=== PATIENT | male | born 1990 | race Caucasian/White ===

== ENCOUNTER 2017-01-06 11:14 | Emergency (ER) | payer OTHER ==
--- NOTE | ~2017-01-06 | CR63 ---
[facility]. [facility] A Service of [facility] & [facility] RADIOLOGY TEXT RESULTS PATIENT: LLOYD KAPOOR LOCATION: SED : [birth year] UNIT #: [id number] AGE: [address]: Cailin Bourne MD SEX: M ORDER DR: [id number] [place] [id number] E MR#: [id number] Acc #: [id number] NAME: LLOYD KAPOOR : 1990 SEX: M STUDY DATE/TIME: 01/06/2017 14:49 UNIT: SED ROOM: STUDY DESCRIPTION: CR Chest 2 View Attending Physician: Cailin Bourne M.D. Ordering Physician: Cailin Bourne M.D. Primary Care Physician: Primary Care Physician No MEDICAL IMAGING REPORT This report is preliminary unless electronic signature is present. EXAM Two-view chest, 01/06/2017 INDICATION 18-year-old male with cough, chest congestion and pain with deep inspiration. Sore throat. Symptoms since last Sunday. TECHNIQUE Two-view chest COMPARISON 01/03/2017 FINDINGS Cardiac silhouette unremarkable. Vascularity normal. Lungs clear. No pneumothorax. IMPRESSION Negative chest. No change. Dictated by... Arnold Rosario M.D. THIS IS AN ELECTRONICALLY VERIFIED REPORT Arnold Rosario M.D. at 01/07/2017 3:03 PM [employer] TD: 01/07/2017 13:14 JOB #: [id number] MEDICAL IMAGING REPORT Page 1 of 1
[~2017-01-06 11:14] MED LIST: FAMOTIDINE PO; MOBIC PO
[2017-01-06] MEDS ORDERED: CLEOCIN150 M1 PO (11:26)
[2017-01-06 13:18] LABS: BASOPHIL% 0.4 % (0-2.5); EOSINOPHIL% 0.1 % (0.0-7.0); HEMATOCRIT 42.2 % (38.0-50.0); HEMOGLOBIN 14.7 gm/dL (13.0-16.0); LYMPHOCYTE# 2.8 X10e3 (1.0-3.5); LYMPHOCYTE% 24.2 % (17.0-45.0); MEAN CELL VOLUME 85.7 FL (83-96); MEAN CORPUSCULAR HEMOGLOBIN 29.8 PG (28-34); MEAN CORPUSCULAR HGB CONC 34.8 g/dL (30-36); MEAN PLATELET VOLUME 7.5 FL (6.5-11.5); MONOCYTE# 1.4 X10e3 (0-1.0); MONOCYTE% 11.7 % (3.0-12.0); NEUTROPHIL# 7.5 X10e3 (1.5-7.1); NEUTROPHIL% 63.6 % (40-75); PLATELET COUNT 277 X10e3 (140-420); RED BLOOD COUNT 4.93 X10e (3.90-5.60); RED CELL DISTRIBUTION WIDTH 13.4 % (11.0-15.5); WHITE BLOOD COUNT 11.8 X10e3 (4.0-10.5)
[2017-01-06 13:21] LABS: DIFF IND NO
[2017-01-06 13:38] LABS: BILIRUBIN, DIRECT 0.1 mg/dL (0.0-0.2); BILIRUBIN,INDIRECT 0.5 mg/dL (0.0-0.9); BILIRUBIN,TOTAL 0.6 mg/dL (0.2-2.0); BUN/CREATININE RATIO 17.14; CALCIUM SERUM 9.2 mg/dL (8.4-10.2); CREATININE SERUM 0.7 mg/dL (0.6-1.4); GLOM FILT RATE Estimated 128.5 mL/min (>60); POTASSIUM 3.6 mmol/L (3.5-5.1); PROTEIN TOTAL SERUM 7.9 g/dL (6.0-8.3)
== END 2017-01-06 15:53 | disposition home or self-care (01) ==
LOC: SED 11:14
PROVIDERS: Student in an Organized Health Care Education/Training Program
DX: J03.90 Acute tonsillitis, unspecified (principal); R07.9 Chest pain, unspecified; F17.200 Nicotine dependence, unspecified, uncomplicated
CPT/HCPCS: 36415; 71020; 80048; 80076; 82150; 83690; 85025; 86308; 96361; 96374; 96375; 99285; J1100; J1885; J2550